=== PATIENT | male | born 1980 | race Caucasian/White ===

== ENCOUNTER 2021-04-15 23:58 | Emergency (ER) | payer OTHER ==
[~2021-04-15] VITALS: Ht 182.9 cm; Wt 54.4 kg
[2021-04-16 01:05] LABS: ABSOLUTE NEUTROPHILS 2.7 thou/uL (1.4-8.2); BASOPHILS 0.8 % (0.0-2.0); EOSINOPHILS 1.5 % (0.0-3.0); HEMOGLOBIN 14.4 gm/dL (14.0-18.0); LYMPHOCYTES 38.9 % (24.0-44.0); MCHC 33.4 g/dL (28.0-37.0); MCV 89.8 fL (80.0-100.0); MONOCYTES 8.6 % (1.0-8.0); PLATELET COUNT 264 thou/uL (150-400); POLYS 50.2 % (36.0-66.0); RBC 4.79 mil/uL (4.50-6.00); RDW 13.1 % (10.5-14.5); WBC 5.3 thou/uL (4.0-11.0)
[2021-04-16 01:10] LABS: ANION GAP 9 mmol/L (7-16); BUN 18 mg/dL (7-18); CALCIUM 8.3 mg/dL (8.5-10.1); CHLORIDE 106 mmol/L (98-107); CO2 26 mmol/L (21-32); CREATININE 0.9 mg/dL (0.7-1.3); GLUCOSE 89 mg/dL (74-106); POTASSIUM 3.6 mmol/L (3.5-5.1); SODIUM 141 mmol/L (136-145)
[2021-04-16 01:20] LABS: ALBUMIN 3.8 g/dL (3.4-5.0); SGOT 19 U/L (15-37); SGPT 24 U/L (16-63); TOTAL BILIRUBIN 0.3 mg/dL (0.2-1.0); TROPONIN-I <0.06 ng/mL (<0.06)
[2021-04-16] MEDS ORDERED: PEPCID40 MG PO (04:46)
[2021-04-16 05:35] VITALS: BP 101/61
--- NOTE | 2021-04-17 07:22 | EKG ---
[place] [address] [address] [place] [address] ELECTROCARDIOGRAM REPORT Name: PAUL CISNEROS Room #: DEP [facility]#: [id number] Admission: 04/15/21 Attend Phys: Discharge: 04/16/21 Date of : 82 Report #: [id number] [facility] ED Test Date: 2021-04-16 Test Time: 00:11:07 Pat Name: PAUL ROBLES Department: Room: Gender: M Animal Warden: lynsey : 1980 Requested By: Sebastian Griggs Order Number: [id number] MD: Jose Daniel Covarrubias Measurements Intervals [place] Rate: 88 P: 84 ID: [id number] QRS: 29 QRSD: 116 T: 66 QT: 356 QTc: 431 Interpretive Statements Sinus rhythm Probable left atrial enlargement Incomplete right bundle branch block Lateral infarct, acute ST elevation, consider inferior injury No previous ECG available for comparison Electronically Signed On 04-17-2021 7:21:58 CDT by Jose Daniel Covarrubias [email or web address] <ELECTRONICALLY SIGNED> By: Jose Daniel Covarrubias MD, [facility] 04/17/21 07 001 Jose Daniel Covarrubias MD, FAC /EPI
== END 2021-04-16 05:35 | disposition home or self-care (01) ==
LOC: ER 23:58
PROVIDERS: Emergency Medicine
DX: R07.89 Other chest pain (principal)